=== PATIENT | male | born 1945 ===

== ENCOUNTER 2019-02-28 11:29 | Outpatient (REF) | payer MEDICARE, SELFPAY ==
--- NOTE | 2019-02-28 10:15 | SKI_PTH ---
PATIENT: Stan Duff LOC: [facility] U#:[id number] AGE/SX: 73/M ROOM: RE02/28/[address]: Kris Mcgee DO : 1945 BED: DIS: 02/28/2019 SPEC #: [id number] RECD: 03/01/19 11:53 STATUS: LILY REQ #: [id number] ARSALAN: 02/28/19 10:[address]: Kris Mcgee DEPT: Surgical Specimen RECD BY: Sri Anton ENTERED: 03/01/19 11:54 SP TYPE: SKI OTHR DR: Karen Vora Tissues: 1 - SKIN BIOPSY(SHAVE/PUNCH) Procedures: SKIN LEVEL 4 Comments: [id number]
== END 2019-02-28 11:49 ==
LOC: LBN 11:29
PROVIDERS: Visit Provider Otolaryngology Otolaryngology/Facial Plastic Surgery
DX: L57.0 Actinic keratosis (principal); L90.5 Scar conditions and fibrosis of skin; Z85.828 Personal history of other malignant neoplasm of skin
CPT/HCPCS: 88305